=== PATIENT | female | born 1995 | race Caucasian/White ===

== ENCOUNTER 2019-05-12 11:50 | Inpatient (IN) | payer MEDICAID, SELFPAY ==
[2015-04-08 09:32] VITALS: BMI 31.0
[2019-05-12] MEDS: Lactated Ringers 1,000 ML 50 ML IV (12:45)
--- NOTE | 2019-05-12 12:48 | PCM.HP.OB ---
History Date of Admission: 05/12/19 Final MARYANA: 05/17/19 Final MARYANA Source: US <20 weeks Gestational age: 39 Weeks and 2 Days History of this : This is a 24 year-old, @ 39 1/7 weeks gestation presents for elective induction. Denies FNOSECA or visual changes. No VB/LOF. No painful ctxs. Allergies No Known Allergies Allergy (Verified 04/08/15 09:44) Home Medications: Home Medications Vits [Prenatabs FA ] 1 tablet PO DAILY 04/08/15 Ranitidine [Zantac] 150 mg PO BID 04/08/15 Ibuprofen [Motrin] 600 mg PO Q6H PRN PRN #60 tablet 04/10/15 Smoking Status: Former smoker Alcohol: None Number of Fetus(es): 1 NST - FHR Rate Baby A Baseline: normal Variability:: Moderate Accelerations:: 15 x 15 Decelerations:: None FHR Category:: Category I Uterine Activity:: irreg ctxs History Past Pregnancies: Past Pregnancies Delivery Date Name GA/ Weeks Outcome Route Wt Infant Sex Labor Length Anesthesia Delivery Location Provider FOB Expected Delivery Method: Spontaneous Vaginal Number of Visits: 1 Review of Systems Constitutional: Denies: Chills, Fever Eyes: Denies: Blurred vision Cardiovascular: Denies: Chest Pain Respiratory: Denies: Cough, Shortness of Breath Genitourinary: Denies: Dysuria Skin: Denies: Rash Neurological: Denies: Blurred vision Hematologic/ Lymphatic: Denies: Anemia Physical Exam General: Alert, Cooperative Cardiovascular: Regular rate Lungs: Normal air movement Abdomen: Soft, Non Tender, Non-Distended, Gravid, Appropriate for Gestational Age Extremities:: Other - edema- Trace Neurological: Cranial nerves II-XII grossly intact [employer]EL INST[employer]ER: Normal external genitalia Estimated gestational size: Appropriate for gestational size Assessment/Plan This is a 24 year-old, at 39-1/7 weeks gestation for elective induction of labor. Estimated weight is less than 4000 g clinically, pelvis clinically adequate to expect vaginal delivery. Risk benefits and alternatives to induction been discussed with the patient, her questions were answered to her satisfaction, and consent was signed. She desires to proceed. We will proceed with Pitocin and artificial rupture membranes induction. May have epidural, nitrous oxide or IV pain medications as needed for pain control.
[2019-05-12 12:49] VITALS: BMI 29.5
[2019-05-12] MEDS: Oxytocin 30 units/NS 500 ml 30 UNITS/500 ML IV.SOLN IV (12:58)
[2019-05-12 13:05] LABS: Absolute Lymphocyte Count 1.65 X10^3/uL (0.83-4.51); Basophil# 0.03 X10^3/uL; Basophil% 0.3 % (0-1); Eosinophil# 0.04 X10^3/uL; Eosinophils% 0.4 % (0-5); Hematocrit 32.5 % (37-47); Hemoglobin 10.4 g/dL (12.0-15.0); Lymphocyte # 1.65 X10^3/ul (4.0); Lymphocyte % 17.5 % (19-41); Mean Corpuscular Hgb 27.2 pg (27.0-32.0); Mean Corpuscular Volume 84.9 fL (81-99); Mean Platelet Vol. 11.2 fl (6.2-12.0); Monocyte% 6.3 % (0-10); NRBC Flagged by Analyzer 0 % (0-5); Neutrophil # 7.02 X10^3/uL (2.7-7.7); Neutrophil % 74.3 % (47-70); Platelet Count 153 K/mm3 (150-450); RBC Distribution Width CV 13.4 % (11.6-14.6); Red Blood Count 3.83 M/mm3 (4.2-5.4); White Blood Count 9.5 K/mm3 (4.4-11.0)
[2019-05-12] MEDS: Lactated Ringers 500 ML 999 ML IV (15:00)
[2019-05-12] MEDS: fentaNYL-bupivacaine (epidural) 100 ML BAG EPIDURAL (16:25)
[2019-05-12] MEDS: Oxytocin 30 units/NS 500 ml 30 UNITS/500 ML IV.SOLN 334 UNITS IV (18:26)
--- NOTE | 2019-05-12 18:38 | PCM.OPRPT ---
Vaginal Delivery Maternal Presentation: Elective Induction Method of Induction: Pitocin, Amniotomy Amniotic Membrane Rupture Type: Artificial Amniotic Fluid Description: Clear Final MARYANA: 05/18/19 Gestational age: 39 Weeks and 1 Days Date of Procedure: 05/12/19 Pre-Operative Diagnosis: labor Post-Operative Diagnosis: same Surgery/ Procedure Performed: Spontaneous Vaginal Delivery Type of Anesthesia: Epidural Description of Procedure: A vigorous male infant was delivered BEE over a second-degree perineal laceration. The remainder the was delivered with maternal pushing and gentle traction only in less than 15 seconds. The Pitocin infusion was initiated for active management of the third stage. The cord was clamped and cut after 1 minute. The was attended to by the waiting nursing staff. The placenta was delivered spontaneously and intact. The cervix and vagina were intact. The second-degree perineal laceration was repaired with 2-0 Vicryl suture in a running standard fashion. Sponge and needle counts were correct. A vaginal sweep was completed by me. Presentation: BEE Placental Delivery Description: Spontaneous Placenta Disposition: [facility] Cord Vessel Description: 3 Vessels Cord Entanglement: None Drain: - - none Estimated Blood Loss: 300 Infant A gender: Male (1 minute): 9 (5 minute): 9 Episiotomy Description: None Laceration: 2nd degree Medications given after delivery: IV Pitocin Complications: None
[2019-05-12] MEDS: 0.9% Saline Lock 10 ML Syringe IV (21:10)
[2019-05-13 00:27] VITALS: BP 112/49; PULSE 89; RESP 18; TEMP 37.1
[2019-05-13 04:18] VITALS: BP 99/54; PULSE 65; RESP 17
[2019-05-13] MEDS: Acetaminophen 500 MG Tablet 1000 MG PO (08:37)
[2019-05-13] MEDS: Senna/Docusate Sodium 1 Tablet PO (08:37)
[2019-05-13 08:38] VITALS: BP 121/75; PULSE 85; RESP 16; TEMP 36.8
--- NOTE | 2019-05-13 09:42 | PN.OBGYN_ITS ---
Subjective: Pain well controlled. Average lochia. Some cramping and soreness. Otherwise no complaints. - Physical Exam Vitals/I&O's: Vital Signs Temp Pulse Resp BP 98.3 F 85 16 121/75 H 05/13/19 08:38 05/13/19 08:38 05/13/19 08:38 05/13/19 08:38 Oxygen Delivery Method Room Air Weight: 73.4 kg Body Mass Index (BMI) 29.5 Intake and Output for Last 24 Hours 05/11/19 05/12/19 05/13/19 23:59 23:59 23:59 Intake Total 1769.19 / 1769.19 Output Total 200 / 200 500 / 500 Balance 1569.19 / 1569.19 -500 / -500 General: Alert, Cooperative, No apparent distress Laboratory Results 05/12/19 12:45: WBC 9.5, RBC 3.83 L, Hgb 10.4 L, Hct 32.5 L, MCV 84.9, MCH 27.2, MCHC 32.0, RDW Std Deviation 41.0, RDW Coeff of Melody 13.4, Plt Count 153, MPV 11.2, Immature Gran % (Auto) 1.200 H, Neut % (Auto) 74.3 H, Lymph % (Auto) 17.5 L, [place] % (Auto) 6.3, Eos % (Auto) 0.4, Baso % (Auto) 0.3, Absolute Neuts (auto) 7.0, Absolute Lymphs (auto) 1.65, Nucleated RBC % 0 05/12/19 12:45: Blood Type O POSITIVE, Antibody Screen NEGATIVE Current Medications Acetaminophen (Tylenol) 1,000 mg PO Q8H PRN PRN PRN Reason: Pain Score 1-3/10 Last Admin: 05/13/19 08:37 Dose: 1,000 mg Documented by: Bisacodyl (Dulcolax) 10 mg RECTAL UD PRN PRN Reason: If no BM Dibucaine (Dibucaine) 1 applic TOPICAL TID PRN PRN; Protocol PRN Reason: Discomfort Hydrocortisone (Hytone) 1 applic TOPICAL TID PRN PRN; Protocol PRN Reason: Discomfort Ketorolac Tromethamine (Toradol) 10 mg PO Q6H PRN PRN PRN Reason: Pain Score 1-3/10 Stop: 05/17/19 18:35 Methylergonovine Maleate (Methergine) 0.2 mg IM X1 PRN PRN Reason: Excess bleeding/uterine atony Naproxen (Naprosyn) 500 mg PO Q8H PRN PRN PRN Reason: Pain Score 1-3/10 Ondansetron HCl (Zofran) 4 mg IV Q4H PRN PRN PRN Reason: Nausea Senna/Docusate Sodium (Senokot-S, Michelle-Colace) 1 - 2 tablet PO DAILY PRN PRN PRN Reason: Constipation Last Admin: 05/13/19 08:37 Dose: 2 tablet Documented by: Simethicone (Mylicon) 80 mg PO PCHS PRN PRN Reason: Indigestion/Stomach pain Sodium Chloride () 5 - 15 ml IV UD PRN PRN Reason: SALINE FLUSH Last Admin: 05/12/19 21:10 Dose: 10 ml Documented by: Medical Necessity - Tobacco Use Smoking Status: Former smoker Assessment/Plan day #1 status post vaginal delivery. Patient is doing well. Routine care. Desires discharge home. Infant is bottlefeeding and doing well.
--- NOTE | 2019-05-13 09:46 | DCINST_ITS ---
Discharge Diet: No Restrictions Discharge Activity: Return to Normal Activity, May not drive while taking narcotic pain medications., May Shower May resume sexual activity in: 4-6 weeks Additional Activity Instructions:: Nothing in the vagina for 4-6 weeks. You may return to work/school in 6 weeks. Call your doctor if your incision/area has: Continuous Slow Oozing, Sudden Increased Bleeding, Increased Pain/ Swelling, Increased Redness, Foul Smelling Discharge Additional Instructions: If you experience any of the following, contact your healthcare provider. * Bleeding that soaks a pad every hour for 2 hours * Fever 100.4 or higher * Unrelieved incision or abdominal pain * Swelling, redness, discharge or bleeding from your incision or episiotomy site * Your incision begins to separate * Problems urinating (including inability to urinate or burning while urinating). * Visual changes * Severe headache * Flu-like symptoms * Pain or redness in one of both of your breasts * Pain, warmth, tenderness or swelling in your legs, especially the calf area * Frequent nausea and vomiting * Symptoms of depression or anxiety If you experience any of the following, call 911 or go to the nearest Emergency Room. * Chest pain * Problems breathing * Seizure activity * Partial or complete paralysis of a body part, slurred speech, weakness or drooping of the face, or a sudden inability to walk or hold your balance Allergies/Adverse Reactions: Allergies No Known Allergies Allergy (Verified 04/08/15 09:44) Medications to take at Discharge Vits [Prenatabs FA ] 1 tablet PO DAILY 04/08/15 Acetaminophen [Tylenol Extra Strength] 1,000 mg PO Q6H PRN PRN #30 tab 05/13/19 Ibuprofen [Motrin] 600 mg PO Q6H PRN #60 tab 05/13/19 The following prescriptions were given: Ibuprofen [Motrin] 600 mg PO Q6H PRN #60 tab PRN Reason: Pain Transmission Status: Pending to [facility] Acetaminophen [Tylenol Extra Strength] 1,000 mg PO Q6H PRN PRN #30 tab PRN Reason: Pain Or Fever Transmission Status: Pending to [facility] Please Follow Up With: Priscilal Cameron MD - [phone] When: Call to make an appointment with your doctor in 6 weeks and 1-2 weeks if desired Primary Care Physician: Care Physician,No Primary [Primary Care Provider] - Test Results: Test results from this visit will be discussed in further detail at your follow- up appointment, if applicable.
[2019-05-13 12:00] VITALS: BP 110/64; PULSE 82; RESP 16; TEMP 36.6
[2019-05-13 16:30] VITALS: BP 109/63; PULSE 82; RESP 16; TEMP 36.7
[2019-05-13 20:16] VITALS: BP 133/69; PULSE 89; RESP 18; TEMP 36.9
== END 2019-05-13 20:20 | disposition home or self-care (01) | DRG 560 ==
PROVIDERS: Admitting Provider Obstetrics & Gynecology; Referring Provider Obstetrics & Gynecology; Visit Provider Obstetrics & Gynecology
DX: O75.89 Other specified complications of labor and delivery (principal); O70.1 Second degree perineal laceration during delivery; Z37.0 Single live birth; Z3A.39 39 weeks gestation of pregnancy; Z87.891 Personal history of nicotine dependence
CPT/HCPCS: 59050; 85025; 86850; 86900; 86901; 99218; J7120; A4216; G0378

== ENCOUNTER 2020-11-05 13:40 | Outpatient (CLI) | payer MEDICAID, SELFPAY ==
[2020-11-05 13:53] VITALS: PULSE 77; O2SAT 98
[2020-11-05 13:55] VITALS: BP 122/58; PULSE 71
[2020-11-05 13:57] VITALS: TEMP 36.9; O2SAT 99
[2020-11-05 15:37] VITALS: BMI 28.0
--- NOTE | 2020-11-05 15:37 | CT_ITS ---
STUDY: CT ABDOMEN AND PELVIS WITH CONTRAST REASON FOR EXAM: Female, 25 years old. Assess for APPENDICITIS -- 23 WEEKS GESTATION RADIATION DOSAGE (If Supplied By Facility): CTDIvol = ( 11.99 ) mGy, DLP = ( 728.46 ) mGycm TECHNIQUE: Transaxial images were obtained from the dome of the diaphragm to the symphysis pubis without oral contrast. Oral and amp; IV Gastrografin and amp; 100mL Isovue-300 was administered. Sagittal and coronal images were reconstructed. Individualized dose optimization techniques were used for this CT. COMPARISON: None. FINDINGS: The visualized lung bases are unremarkable. The visualized portions of the heart are within normal limits. Normal liver. Normal gallbladder and extrahepatic biliary system. Normal spleen. Normal pancreas. Normal bilateral adrenal glands. There is bilateral hydroureteronephrosis, more pronounced on the right. Normal visualized stomach. Normal small intestine. Normal colon. The appendix is visualized and appears normal. Normal abdominal aorta. Normal inferior vena cava. Normal retroperitoneum. Normal urinary bladder. There is a gravid uterus; the fetus is in a vertex presentation. Normal abdominal wall. There are bilateral L5 pars defects. CT/Abdomen/Pelvis WITH Contrast IMPRESSION: Bilateral hydroureteronephrosis, more pronounced on the right. Nonvisualization of the appendix. uterus. Bilateral L5 pars defects. Electronically Signed: Natalie Call MD at 18:19 EDT Tel , Service support ,
[2020-11-05 17:32] VITALS: BP 112/65; PULSE 63
--- NOTE | 2020-11-05 18:29 | OB.TRI.NOTE ---
HPI - General HPI Narrative MARY KOENIG, is a 25 at 23.3 weeks gestation who presents with right lower quadrant pain. Patient arrived to unit via squad. She was at work and began having a sharp pain that started off as intermittent and is now constant. Rates pain 01/09. Maternal Data Information MARYANA Calculator Estimated Delivery Date Method Current WG Current Estimate 03/01/21 Manual 23w 3d PFSH PFSH Home Medications Prenatabs FA 1 tab PO DAILY 04/08/15 [History Last Taken 11/05/20] omeprazole [Prilosec] 20 mg PO DAILY 11/05/20 [History Last Taken Unknown] Allergy/AdvReac Type Severity Reaction Status Date / Time No Known Allergies Allergy Verified 11/05/20 16:24 Social History Smoking Status: Former smoker History Elective abortions Hx Para 1 Spontaneous abortions Hx # Term Pregnancies Ectopic pregnancies Hx # Pregnancies Multiple births # of living children ROS Eyes Eyes: Denies blurry vision Cardiovascular Cardiovascular: Reports none; Denies chest pain at rest, chest pain with activity or dizziness Respiratory/Chest Respiratory/Chest: Denies cough or dyspnea Gastrointestinal Gastrointestinal: Reports abdominal pain and other Details: LRQ pain Genitourinary Genitourinary: Denies dysuria Musculoskeletal Musculoskeletal: Reports none Integumentary Integumentary: Reports none; Denies rash Neurologic Neurologic: Denies dizziness, headache(s) or other visual disturbances Psychiatric Psychiatric: Reports none Physical Exam Const alert and no apparent distress General Appearance: cooperative Orientation / Consciousness: awake Exam Limitations: no limitations HEENT normocephalic Eyes General Eye: normal appearance of both eyes Neck full ROM Chest inspection of chest normal Resp normal respiratory effort and normal air movement Effort and Inspection: symmetric chest movement Auscultation: clear to auscultation bilaterally Cardio regular rate GI GI Narrative: Lower bilateral quadrants tender to palpation Inspection: gravid Back/Spine normal ROM Extremity full ROM, normal capillary refill and no calf tenderness Skin no rashes or lesions noted Neuro oriented x3 and CN's II-XII intact bilaterally Psych mental status grossly normal NST FHR Rate Baby A Baseline: 140 Uterine Activity:: None noted Assessment & Plan (1) 23 weeks gestation of : (2) Right lower quadrant abdominal pain: PLAN: FHT via doppler TOCO continuous CT scan of lower abdomen to r/o appendicitis Dr. Cameron notified and is collaborating physician
[2020-11-05 18:31] LABS: Bacteria 0 SEEN /hpf (None Seen); Mucous, Urine 0 SEEN /hpf (<or=2+); Red Blood Cells-Urine 0 SEEN /hpf (0-5)
[2020-11-05 18:42] LABS: Color, Urine Straw (Yellow); Glucose, Dipstick Normal (Normal); Ketone-Dipstick Negative (Negative); Leukocyte Esterase-Dipstick 100 /ul (Negative); Nitrite-Dipstick Negative (Negative); Occult Blood-Urine 25 /ul (Negative); Protein-Dipstick Negative (Negative); Urine Bilirubin Dipstick Negative (Negative); Urine Clarity Clear (Clear); Urine Urobilinogen Normal (Normal)
[2020-11-05 18:56] LABS: Squamous Epithelial Cells - UA 0-5 SEEN /hpf (5-10); White Blood Cells 0-5 SEEN /hpf (0-5)
--- NOTE | 2020-11-05 19:50 | PCM.PN.BLA ---
Physical Exam Narrative Awake, alert, no acute distress. Sitting up comfortably in bed. Abdomen is soft, gravid, nontender, nondistended. Fundus is nontender. Size is appropriate for gestational age. Assessment & Plan Assessment/Plan (1) Right lower quadrant abdominal pain: PLAN: CT is negative for evidence of appendicitis. Patient tolerated broth. Pain has resolved completely at this point. Likely had some kind of spasm. Patient to return if any other concerns, vaginal bleeding, leaking of fluid, fever or nausea or vomiting. Patient is comfortable with this plan. Follow-up in the office or return as needed. (2) 23 weeks gestation of :
[2020-11-06 01:19] VITALS: BP 140/93; PULSE 66
== END 2020-11-05 19:55 | disposition home or self-care (01) ==
LOC: WPOUT 13:50 → WP 13:52
PROVIDERS: Referring Provider Advanced Practice Midwife; Visit Provider Advanced Practice Midwife
DX: O26.892 Other specified pregnancy related conditions, second trimester (principal); R10.31 Right lower quadrant pain; Z3A.23 23 weeks gestation of pregnancy; Z87.891 Personal history of nicotine dependence; Z79.899 Other long term (current) drug therapy
CPT/HCPCS: 59025; 59050; 74177; 81001; 87086; 87088; 99218; Q9967; G0378

== ENCOUNTER 2021-02-09 18:40 | Inpatient (IN) | payer MEDICAID, SELFPAY ==
[2021-02-09] VITALS (45 sets, daily range): BP systolic 109–180; BP diastolic 55–113; PULSE 64–108; TEMP 36.4–36.7; O2SAT 92–100; BMI 33.4
--- NOTE | 2021-02-09 09:28 | OB.TRI.NOTE ---
HPI - General HPI Narrative MARY KOENIG, is a 25 F @ 37+1 weeks who presents c/o contractions. denies VB, LOF. Maternal Data Information MAYRANA Calculator Estimated Delivery Date Method Current WG Current Estimate 03/01/21 Manual 37w 1d PFSH PFSH Home Medications Prenatabs FA 1 tab PO DAILY 04/08/15 [History Last Taken 02/08/21 22:00] omeprazole [Prilosec] 20 mg PO DAILY 11/05/20 [History Last Taken 02/08/21 10:00] Allergy/AdvReac Type Severity Reaction Status Date / Time No Known Allergies Allergy Verified 11/05/20 16:24 Social History Smoking Status: Former smoker History Elective abortions Hx Para 1 Spontaneous abortions Hx # Term Pregnancies Ectopic pregnancies Hx # Pregnancies Multiple births # of living children Physical Exam Narrative Well appearing, alert in no apparent distress. VE performed by RN. 1/thick NST FHR Rate Baby A Baseline: 130 Variability:: Moderate Accelerations:: 15 x 15 Decelerations:: None NST Reactive:: Yes FHR Category:: Category I Uterine Activity:: irregular Assessment & Plan (1) Cramping affecting , antepartum: (2) 37 weeks gestation of : PLAN: @ 37.1 weeks- irregular contractions-false labor 1) dc home
[2021-02-09] MEDS: Lactated Ringers 1,000 ML 200 ML IV ×2 (17:20→23:10)
[2021-02-09 17:49] LABS: Hematocrit 29.8 % (37-47); Hemoglobin 8.9 g/dL (12.0-15.0); Mean Corp Hgb Conc 29.9 g/dL (32-36); Mean Corpuscular Hgb 23.1 pg (27.0-32.0); Mean Corpuscular Volume 77.2 fL (81-99); Mean Platelet Vol. 12.8 fl (6.2-12.0); Platelet Count 140 K/mm3 (150-450); RBC Distribution Width CV 19.3 % (11.6-14.6); RBC Distribution Width SD 42.5 fl (35.1-43.9); Red Blood Count 3.86 M/mm3 (4.2-5.4); White Blood Count 8.4 K/mm3 (4.4-11.0)
[2021-02-09 18:28] LABS: Protein, Urine (Random) 228.5 mg/dL (<11.9); Protein:Creat Ratio 757 mg/g CRE (0-200)
[2021-02-09 18:30] LABS: AST(SGOT) 23 U/L (15-37); Alanine Aminotransfer ALT/SGPT 15 U/L (13-56); Creatinine, Serum 0.66 mg/dL (0.55-1.02); EST Glomerular Filtration Rate 114 mL/min (>60); Est Glom Filt Rate - Afr Amer 138 mL/min (>60); Estimated Creatinine Clearance 96.62 ml/min; Uric Acid 5.6 mg/dL (2.6-6.0)
[2021-02-09] MEDS: Lactated Ringers 1,000 ML 50 ML IV (18:50)
[2021-02-09 19:08] LABS: Group B Strep DNA By PCR Negative (Negative); Internal Control PASS; Probe Check PASS; Specimen Processing Control PASS
[2021-02-09] MEDS: Oxytocin 30 units/NS 500 ml 30 UNITS/500 ML IV.SOLN IV (19:45)
[2021-02-09] MEDS: Lactated Ringers 500 ML 999 ML IV (20:57)
[2021-02-09] MEDS: fentaNYL-bupivacaine (epidural) 100 ML BAG EPIDURAL (21:57)
[2021-02-09] MEDS: Mag Hydrox/Al Hydrox/Simeth 30 ML UDC PO (22:12)
[2021-02-10] VITALS (21 sets, daily range): BP systolic 117–158; BP diastolic 56–106; PULSE 53–93; RESP 16; TEMP 36.1–37.1; O2SAT 95–98
[2021-02-10] MEDS: Ondansetron 4 MG/2 ML Vial IV (01:49)
[2021-02-10] MEDS: 0.9% Saline Lock 10 ML Syringe IV (01:49)
[2021-02-10] MEDS: fentaNYL-bupivacaine (epidural) 100 ML BAG EPIDURAL (02:33)
[2021-02-10] MEDS: Lactated Ringers 1,000 ML 200 ML IV (03:52)
[2021-02-10] MEDS: Oxytocin 30 units/NS 500 ml 30 UNITS/500 ML IV.SOLN 334 UNITS IV (05:33)
--- NOTE | 2021-02-10 05:39 | HP.PCM.OB_ITS ---
HPI - General General Date of Admission: 02/09/21 HPI Narrative MARY KOENIG, is a 25 F @ 37.1 weeks who presents from the office for r/o pre eclampsia- pt represented with abdominal pain and mildly elevated BP in office. Pt denies FONSCEA, visual changes, epigastric pain. Pt reports good FM, no VB. pt was seen earlier to r/o labor and dc home without incident. Maternal Data Information MARYANA Calculator Estimated Delivery Date Method Current WG Current Estimate 03/01/21 Manual 37w 2d PFSH PFSH Medical History (Updated 02/10/21 @ 05:[address] Soraya Good MD) Anemia Anxiety depression Home Medications Prenatabs FA 1 tab PO DAILY 04/08/15 [History Last Taken 02/08/21 22:00] omeprazole [Prilosec] 20 mg PO DAILY 11/05/20 [History Last Taken 02/08/21 10:00] Allergy/AdvReac Type Severity Reaction Status Date / Time No Known Allergies Allergy Verified 11/05/20 16:24 Surgical History (Updated 02/09/21 @ 18:46 by Fatou Piedra) [place] teeth extracted Social History Smoking Status: Former smoker History Elective abortions Hx Para 2 Spontaneous abortions Hx # Term Pregnancies Ectopic pregnancies Hx # Pregnancies Multiple births # of living children Vital Signs Vital Signs Vital Signs: 02/09/21 08:19 02/09/21 08:20 02/09/21 17:10 Temperature 97.9 F Temperature Source Temporal Pulse Rate 71 68 83 Blood Pressure 135/70 H 135/70 H 136/79 H BP Systolic 135 135 136 BP Diastolic 70 70 79 Pulse Ox 98 02/09/21 17:15 02/09/21 17:29 02/09/21 17:45 Temperature 98.1 F Temperature Source Temporal Pulse Rate 83 95 Blood Pressure 134/77 H 139/80 H BP Systolic 134 139 BP Diastolic 77 80 Pulse Ox 02/09/21 18:00 02/09/21 18:15 02/09/21 18:30 Temperature Temperature Source Pulse Rate 83 78 73 Blood Pressure 135/81 H 144/87 H 145/88 H BP Systolic 135 144 145 BP Diastolic 81 87 88 Pulse Ox 02/09/21 19:23 02/09/21 19:24 02/09/21 19:39 Temperature 97.7 F L Temperature Source Temporal Pulse Rate 93 96 Blood Pressure 180/86 H 145/71 H BP Systolic 180 145 BP Diastolic 86 71 Pulse Ox 97 02/09/21 20:44 02/09/21 21:00 02/09/21 21:01 Temperature 97.7 F L Temperature Source Temporal Pulse Rate 93 76 93 Blood Pressure 161/85 H 143/82 H BP Systolic 161 143 BP Diastolic 85 82 Pulse Ox 92 99 02/09/21 21:37 02/09/21 21:38 02/09/21 21:42 Temperature 97.6 F L Temperature Source Temporal Pulse Rate 96 97 98 Blood Pressure 132/84 H 143/96 H BP Systolic 132 143 BP Diastolic 84 96 Pulse Ox 99 99 02/09/21 21:47 02/09/21 21:52 02/09/21 21:57 Temperature Temperature Source Pulse Rate 84 85 Blood Pressure 144/93 H 138/84 H BP Systolic 144 138 BP Diastolic 93 84 Pulse Ox 99 93 98 02/09/21 21:58 02/09/21 22:02 02/09/21 22:03 Temperature Temperature Source Pulse Rate 82 96 Blood Pressure 140/92 H 135/113 H BP Systolic 140 135 BP Diastolic 92 113 Pulse Ox 99 02/09/21 22:05 02/09/21 22:07 02/09/21 22:12 Temperature Temperature Source Pulse Rate 75 91 108 H Blood Pressure 131/73 H 129/73 H 130/73 H BP Systolic 131 129 130 BP Diastolic 73 73 73 Pulse Ox 100 100 02/09/21 22:17 02/09/21 22:23 02/09/21 22:27 Temperature Temperature Source Pulse Rate 70 73 Blood Pressure 139/79 H 116/55 L BP Systolic 139 116 BP Diastolic 79 55 Pulse Ox 100 98 02/09/21 22:28 02/09/21 22:32 02/09/21 22:37 Temperature Temperature Source Pulse Rate 67 70 68 Blood Pressure 118/56 L 118/59 L 117/59 L BP Systolic 118 118 117 BP Diastolic 56 59 59 Pulse Ox 98 98 02/09/21 22:42 02/09/21 22:47 02/09/21 22:48 Temperature Temperature Source Pulse Rate 70 70 67 Blood Pressure 115/59 L 113/58 L BP Systolic 115 113 BP Diastolic 59 58 Pulse Ox 98 97 02/09/21 22:52 02/09/21 22:57 02/09/21 23:02 Temperature Temperature Source Pulse Rate 67 68 67 Blood Pressure 109/58 L 118/58 L 114/58 L BP Systolic 109 118 114 BP Diastolic 58 58 58 Pulse Ox 97 96 98 02/09/21 23:07 02/09/21 23:12 02/09/21 23:16 Temperature Temperature Source Pulse Rate 64 70 65 Blood Pressure 115/57 L 113/56 L 112/57 L BP Systolic 115 113 112 BP Diastolic 57 56 57 Pulse Ox 98 95 02/09/21 23:17 02/09/21 23:22 02/09/21 23:28 Temperature Temperature Source Pulse Rate 67 64 76 Blood Pressure 111/56 L 137/81 H BP Systolic 111 137 BP Diastolic 56 81 Pulse Ox 96 96 02/10/21 00:36 02/10/21 01:19 02/10/21 01:54 Temperature 97.8 F 97.5 F L 98.1 F Temperature Source Temporal Temporal Temporal Pulse Rate 65 76 80 Blood Pressure 119/58 L 131/63 H 136/75 H BP Systolic 119 131 136 BP Diastolic 58 63 75 Pulse Ox 97 02/10/21 03:03 02/10/21 03:54 02/10/21 05:00 Temperature 97.5 F L 97.3 F L 97.5 F L Temperature Source Temporal Temporal Temporal Pulse Rate 81 66 81 Blood Pressure 132/82 H 120/56 L 143/71 H BP Systolic 132 120 143 BP Diastolic 82 56 71 Pulse Ox 96 02/10/21 05:01 Temperature Temperature Source Pulse Rate 70 Blood Pressure BP Systolic BP Diastolic Pulse Ox 95 Weight Weight: 80.2 kg Body Mass Index (BMI) 33.4 Labs Labs Labs: Blood Type O POSITIVE Antibody Screen NEGATIVE Hct 29.8 % (37-47) L Hgb 8.9 g/dL (12.0-15.0) L Group B Strep DNA Negative (Negative) Rhogam given: No Assessment & Plan (1) Preeclampsia: QUALIFIERS: Trimester: third trimester Qualified Code(s): O14.93 - Unspecified pre-eclampsia, third trimester (2) 37 weeks gestation of : PLAN: Admit to L&D [facility] FHR/TOCO Epidural if requested for pain Monitor VS Anticipate PRE E labs reviewed- Urine prot creat ratio elevated 757mg AST/ALT wnl, plts low 140, creatinine wnl Anemia in pitocin
--- NOTE | 2021-02-10 05:42 | EX.PCM.OBRPT ---
Assessment & Plan (1) 37 weeks gestation of : (2) Preeclampsia: QUALIFIERS: Trimester: third trimester Qualified Code(s): O14.93 - Unspecified pre-eclampsia, third trimester (3) Vaginal delivery: Maternal Data Information MARYANA Calculator Estimated Delivery Date Method Current WG Current Estimate 03/01/21 Manual 37w 2d Vaginal Delivery Maternal Presentation Maternal Presentation: Medically Indicated Induction Maternal Presentation: preeclampsia Type of Induction: Pitocin Medical Reason for Induction: Preeclampsia, eclampsia Operative Information Date of Procedure: 02/10/21 Pre-Operative Diagnosis: Preeclampsia, early term gestation Post-Operative Diagnosis: same, live male infant Surgery / Procedure Performed: Spontaneous Vaginal Delivery Type of Anesthesia: Epidural Drain: Paige to straight drain Estimated Blood Loss: 150 Time of Delivery: 05:31 Findings Description of Procedure: I was called to notify the patient was complete. Upon my arrival membranes were intact. Artificial rupture membranes was performed clear fluid. Good maternal pushing efforts delivered the head followed by gentle downward traction and good maternal pushing efforts to deliver the anterior shoulder followed by the rest 's body. was placed on the mother's chest it was vigorous at time of . Delayed cord clamping was performed. Placenta was then delivered intact without complication. First-degree vaginal laceration was repaired with a 3-0 Rapide. Presentation: Vertex Amniotic Membrane Rupture Type: Artificial Amniotic Fluid Description: Clear Placental Delivery Description: Expressed Placenta Disposition: [facility] Specimen(s) Removed: Placenta Cord Vessel Description: 3 Vessels Cord Entanglement: None Infant A Gender: Male (1 minute): 8 (5 minute): 9 Delayed Cord Clamping: Yes Post Vaginal Delivery Medications Given After Delivery: IV Pitocin Episiotomy Description: None Laceration: Vaginal Extension/lac and 1st degree Complication Complications: None
[2021-02-10] MEDS: Acetaminophen 500 MG Tablet 1000 MG PO ×3 (06:10→22:35)
[2021-02-10] MEDS: Methylergonovine 0.2 MG/ML Ampul IM (07:53)
[2021-02-10] MEDS: Pantoprazole Sodium 20 MG Tablet PO (09:50)
[2021-02-10] MEDS: Ferrous Sulfate 325 MG Tablet PO ×2 (12:27→17:18)
--- NOTE | 2021-02-10 16:59 | NURSING ---
1640 pt c/o heartburn and wants some medication- BP taken d/t dx of Pre E pt denies any vision problems, pt states that she had a mild headache prior to Tylenol but now she has no headache; Dr campbell called at 1655 and notified of pts c/o heartburn, mild headache earlier relieved with tylenol, and BP of 148/82; Order received for froy
[2021-02-10] MEDS: Mag Hydrox/Al Hydrox/Simeth 30 ML UDC PO (17:18)
[2021-02-11] VITALS: BP 136/80; PULSE 77; RESP 18; TEMP 36.4; O2SAT 96
[2021-02-11] MEDS: Ibuprofen 600 MG Tablet PO (03:23)
[2021-02-11 03:38] VITALS: BP 134/68; PULSE 68; RESP 16; TEMP 36.2; O2SAT 97
[2021-02-11 06:25] LABS: Hematocrit 25.1 % (37-47); Hemoglobin 7.5 g/dL (12.0-15.0); Mean Corp Hgb Conc 29.9 g/dL (32-36); Mean Corpuscular Hgb 23.5 pg (27.0-32.0); Mean Corpuscular Volume 78.7 fL (81-99); Mean Platelet Vol. 11.4 fl (6.2-12.0); POSITIVE MORPHOLOGY YES; Platelet Count 113 K/mm3 (150-450); RBC Distribution Width CV 20.1 % (11.6-14.6); RBC Distribution Width SD 43.1 fl (35.1-43.9); Red Blood Count 3.19 M/mm3 (4.2-5.4); White Blood Count 8.2 K/mm3 (4.4-11.0)
[2021-02-11 06:30] LABS: Scan Indicated on CBC? Y/N YES- FLAGS NOTED
[2021-02-11 06:49] LABS: Differential Comment SCANNED
[2021-02-11 08:11] VITALS: BP 140/76; PULSE 78; RESP 17; TEMP 36.4; O2SAT 98
--- NOTE | 2021-02-11 08:21 | PN.OBGYN_ITS ---
Subjective Subjective Doing well per patient and nursing staff. Ambulating and taking PO without difficulty. Voiding and passing flatus. Pain controlled. Bottle feeding.Denies headache, visual changes, chest pain, shortness of breath, leg pain or increased bleeding. Lochia normal. Denies any dizzy or lightheadedness. Objective Data Objective Data Vital Signs: Vital Signs Temp Pulse Resp BP Pulse Ox 97.5 F L 78 17 140/76 H 98 02/11/21 08:11 02/11/21 08:11 02/11/21 08:11 02/11/21 08:11 02/11/21 08:11 Oxygen Delivery Method Room Air Weight: 176 lb 12.972 oz Body Mass Index (BMI) 33.4 Intake & Output: Intake and Output for Last 24 Hours 02/09/21 02/10/21 02/11/21 23:59 23:59 23:59 Intake Total 1279.68 / 1279.68 1907.17 / 1907.17 Output Total 200 / 200 450 / 450 Balance 1079.68 / 1079.68 1457.17 / 1457.17 Lab / Micro Data Result Diagrams: 02/11/21 06:18 02/09/21 17:20 Labs: Laboratory Results - last 24 hr 02/11/21 06:18: WBC 8.2, RBC 3.19 L, Hgb 7.5 L, Hct 25.1 L, MCV 78.7 L, MCH 23.5 L, MCHC 29.9 L, RDW Std Deviation 43.1, RDW Coeff of Melody 20.1 H, Plt Count 113 L , MPV 11.4, Differential Comment SCANNED Micro: Microbiology 02/09/21 19:10 Nasal Secretion SARS-CoV-2 Antigen (Rapid) - Final ROS Constitutional Constitutional: Reports systems reviewed and no addt'l complaints, except as documented; Denies headache(s) Eyes Eyes: Denies acute decrease in peripheral vision, blurry vision or change in vision ENT HEENT: Reports systems reviewed and no addt'l complaints, except as documented Cardiovascular Cardiovascular: Denies chest pain or dizziness Respiratory/Chest Respiratory/Chest: Denies cough, dyspnea, dyspnea on exertion, shortness of breath at rest or shortness of breath with exertion Gastrointestinal Gastrointestinal: Denies abdominal pain, diarrhea, nausea or vomiting Genitourinary Genitourinary: Denies abdominal discomfort Musculoskeletal Musculoskeletal: Denies limited range of motion Integumentary Integumentary: Reports systems reviewed and no addt'l complaints, except as documented Neurologic Neurologic: Reports systems reviewed and no addt'l complaints, except as documented Psychiatric Psychiatric: Reports systems reviewed and no addt'l complaints, except as documented Endocrine Endocrinology: Reports systems reviewed and no addt'l complaints, except as documented Hematologic/Lymphatic Hematologic/Lymphatic: Reports systems reviewed and no addt'l complaints, except as documented Allergic/Immunologic Allergic/Immunologic: Reports systems reviewed and no addt'l complaints, except as documented Physical Exam Const alert and oriented x3 General Appearance: cooperative Orientation / Consciousness: awake, oriented to person, oriented to place and oriented to time Exam Limitations: no limitations HEENT normocephalic Head and Scalp: normal to inspection, normocephalic and atraumatic Face and Sinus: normal facial exam Eyes General Eye: normal appearance of both eyes Neck full ROM Chest Chest: symmetrical chest wall rise Resp normal respiratory effort and normal air movement Auscultation: clear to auscultation bilaterally Cardio regular rate, regular rhythm, S1 normal heart sound, S2 normal heart sound, no murmurs, no rub, no gallops and no clicks GI normal to inspection, nondistended, normoactive bowel sounds and non-tender GI Narrative: Fundus firm 2 below U appearance of the vagina normal Bladder / Kidney Exam: no CVA tenderness Back/Spine normal ROM Extremity full ROM Extremity Narrative: +1 BLE edema, pitting. Skin no rashes or lesions noted Neuro oriented x3, CN's II-XII intact bilaterally and moves all extremities Sensorium / Orientation: awake, alert and oriented to person Motor Exam: clonus absent Deep Tendon Reflexes: Rt Patellar (L4): 2+ and Lt Patellar (L4): 2+ Assessment & Plan (1) Acute blood loss anemia: COMMENT: IV Iron, Repeat CBC (2) First degree perineal laceration: (3) Vaginal delivery: COMMENT: PPD#1 (4) Preeclampsia: QUALIFIERS: Trimester: third trimester Qualified Code(s): O14.93 - Unspecified pre-eclampsia, third trimester PLAN: 1)Routine PP care. 2) Bottle feeding 3) Hgb 7.5, Stable and asymptomatic. Will give IV iron. Repeat CBC at 1700 4) BP mild range, will continue to monitor, possible initiation of medication. Consulted and agrees with plan. 5) Discussed staying 72 hr post delivery due to preeclampsia 6) Pain controlled
[2021-02-11] MEDS: Pantoprazole Sodium 20 MG Tablet PO (10:24)
[2021-02-11] MEDS: 0.9% Saline Lock 10 ML Syringe IV (11:22)
[2021-02-11] MEDS: Ferrous Sulfate 325 MG Tablet PO ×2 (11:41→19:47)
[2021-02-11 13:32] VITALS: BP 134/80; PULSE 77; RESP 16; TEMP 36.5; O2SAT 96
[2021-02-11 17:35] VITALS: BP 142/74
[2021-02-11 17:44] LABS: Absolute Lymphocyte Count 1.57 X10^3/uL (0.83-4.51); Absolute Neutrophil Count 8.7 X10^3/uL (2.0-7.7); Basophil# 0.03 X10^3/uL; Basophil% 0.3 % (0-1); Eosinophil# 0.07 X10^3/uL; Eosinophils% 0.6 % (0-5); Hematocrit 27.6 % (37-47); Hemoglobin 8.4 g/dL (12.0-15.0); Lymphocyte # 1.57 X10^3/ul (0.83-4.51); Mean Corp Hgb Conc 30.4 g/dL (32-36); Mean Corpuscular Hgb 24.2 pg (27.0-32.0); Mean Corpuscular Volume 79.5 fL (81-99); Mean Platelet Vol. 11.4 fl (6.2-12.0); Monocyte# 0.66 X10^3/uL; Monocyte% 5.9 % (0-10); NRBC Flagged by Analyzer 0 % (0-5); Neutrophil # 8.74 X10^3/uL (2.7-7.7); POSITIVE MORPHOLOGY YES; Platelet Count 131 K/mm3 (150-450); RBC Distribution Width CV 21.2 % (11.6-14.6); RBC Distribution Width SD 43.5 fl (35.1-43.9); Red Blood Count 3.47 M/mm3 (4.2-5.4); White Blood Count 11.2 K/mm3 (4.4-11.0)
[2021-02-11 17:54] LABS: Differential Indicated SCAN CRITERIA MET
[2021-02-11 18:15] LABS: Differential Comment SCANNED
[2021-02-11 18:16] LABS: Anisocytosis 2+; Polychromasia 1+
[2021-02-11 18:17] LABS: Macrocytosis 1+; Microcytosis 1+
[2021-02-11 19:48] VITALS: BP 137/78; PULSE 79; RESP 16; TEMP 36.6
[2021-02-12 02:15] VITALS: BP 141/73; PULSE 79; RESP 16; TEMP 36.1
[2021-02-12] MEDS: 0.9% Saline Lock 10 ML Syringe IV (02:18)
[2021-02-12 07:45] VITALS: BP 147/84; PULSE 79; RESP 16; TEMP 36.5
--- NOTE | 2021-02-12 09:38 | PN.OBGYN_ITS ---
Subjective Subjective Patient seen at bedside, doing well. Patient reports good pain control mild lochia. Voiding without difficulty. Bottlefeeding. Patient reports part of her tooth fell off on the left side and she is having some facial pain and swelling and a little bit of a headache from that. Patient denies any visual changes. Objective Data Objective Data Vital Signs: Vital Signs Temp Pulse Resp BP Pulse Ox 97.7 F L 79 16 147/84 H 96 02/12/21 07:45 02/12/21 07:45 02/12/21 07:45 02/12/21 07:45 02/11/21 13:32 Oxygen Delivery Method Room Air Weight: 80.2 kg Body Mass Index (BMI) 33.4 Intake & Output: Intake and Output for Last 24 Hours 02/10/21 02/11/21 02/12/21 23:59 23:59 23:59 Intake Total 1907.17 / 1907.17 110 / 110 Output Total 450 / 450 Balance 1457.17 / 1457.17 110 / 110 Lab / Micro Data Result Diagrams: 02/11/21 17:20 02/09/21 17:20 Labs: Laboratory Results - last 24 hr 02/11/21 17:20: WBC 11.2 H, RBC 3.47 L, Hgb 8.4 L, Hct 27.6 L, MCV 79.5 L, MCH 24.2 L, MCHC 30.4 L, RDW Std Deviation 43.5, RDW Coeff of Melody 21.2 H, Plt Count 131 L, MPV 11.4, Immature Gran % (Auto) 1.200 H, Neut % (Auto) 78.0 H, Lymph % (Auto) 14.0 L, [place] % (Auto) 5.9, Eos % (Auto) 0.6, Baso % (Auto) 0.3, Absolute Neuts (auto) 8.7 H, Absolute Lymphs (auto) 1.57, Nucleated RBC % 0, Differential Comment SCANNED, Polychromasia 1+, Anisocytosis 2+, Microcytosis 1+, Macrocytosis 1+ Micro: Microbiology 02/09/21 Unknown Genital vaginal Group B Streptococcus Culture - Preliminary Streptococcus agalactiae (B) 02/09/21 19:10 Nasal Secretion SARS-CoV-2 Antigen (Rapid) - Final Physical Exam Const alert, oriented x3 and well nourished General Appearance: cooperative Exam Limitations: no limitations HEENT normocephalic Neck General: normal visual inspection GI soft to palpation and non-distended GI Narrative: Fundus firm Extremity normal to inspection and no calf tenderness Skin no rashes or lesions noted Neuro oriented x3 and CN's II-XII intact bilaterally Psych mental status grossly normal Assessment & Plan (1) Acute on chronic anemia: (2) Vaginal delivery: (3) Preeclampsia: QUALIFIERS: Trimester: third trimester Qualified Code(s): O14.93 - Unspecified pre-eclampsia, third trimester PLAN: PPD# 2 , Doing well Routine care pain mgmt ambulation BPs reviewed- Mildly elevated but no treatment indicated at this time when to call office or return to ER reviewed follow up 02/16/21 9:30 am in OFFICE for BP check and immediate PP exam follow up with dentist continue iron for anemia
--- NOTE | 2021-02-12 09:46 | PCM.DC ---
Discharge Instructions Diet Discharge Diet: No restrictions Activity May resume sexual activity in: 6-8 weeks Dressing / Incision Call your doctor if you observe: Fever of 101 or Higher, Inability to urinate, Using more than 1 pad per hour and Uncontrolled pain Follow Up Care Please Follow Up With: Soraya Good MD When: 1-2 weeks post and again at 6 weeks post . [phone] Test Results: Test results from this visit will be discussed in further detail at your follow-up appointment, if applicable. Discharge Plan Admission Admit Date/Time: 02/09/21 18:40 Attending Provider: Soraya Good Primary Care Provider: Care Physician,No Primary Instructions Patient Instructions: Kick Counts, OB Triage: Return to Hospital or Notify Physician if you Experience: Additional Instructions / Restrictions: keep appointment today at 4:30 Discharge Orders/Prescriptions Prescriptions: New acetaminophen 500 mg Tablet 1,000 mg PO Q6H PRN PRN (Reason: Pain 1-10 Or Fever) Qty: 0 RF: 0 ferrous sulfate [FeroSul] 325 mg (65 mg iron) Tablet 325 mg PO 1200,1700 Qty: 60 RF: 1 ibuprofen 600 mg Tablet 600 mg PO Q6H PRN PRN (Reason: Pain Score 1-10) Qty: 0 RF: 0 Continued Prenatabs FA 1 TABLET tablet 1 tab PO DAILY RF: 0 omeprazole 20 mg Capsule,Delayed Release(Dr/Ec) 20 mg PO DAILY RF: 0 Referrals / Follow Up: Care Physician,No Primary [Primary Care Provider] - Disposition Disposition (needs filled in before D/C Order can be placed): Home, Self Care
[2021-02-12] MEDS: Pantoprazole Sodium 20 MG Tablet PO (10:36)
== END 2021-02-12 11:15 | disposition home or self-care (01) | DRG 560 ==
LOC: WPOUT 18:47 → WP 19:09
PROVIDERS: Advanced Practice Midwife; Obstetrics & Gynecology; Admitting Provider Obstetrics & Gynecology; Referring Provider Obstetrics & Gynecology; Visit Provider Obstetrics & Gynecology
DX: O14.94 Unspecified pre-eclampsia, complicating childbirth (principal); Z3A.37 37 weeks gestation of pregnancy; Z37.0 Single live birth; Z87.891 Personal history of nicotine dependence; O99.013 Anemia complicating pregnancy, third trimester; O70.0 First degree perineal laceration during delivery; O99.12 Other diseases of the blood and blood-forming organs and certain disorders involving the immune mechanism complicating childbirth; D69.6 Thrombocytopenia, unspecified; K08.89 Other specified disorders of teeth and supporting structures; O75.89 Other specified complications of labor and delivery
CPT/HCPCS: 59025; 59050; 82565; 82570; 84156; 84450; 84460; 84550; 85025; 85027; 86850; 86900; 86901; 87077; 87081; 87186; 87426; 87653; 99218; J1756; J7120; A4216; G0378; J2405

== ENCOUNTER 2021-03-19 10:50 | Day surgery (SDC) | payer MEDICAID, SELFPAY ==
--- NOTE | 2021-03-18 12:49 | HP.PCM_ITS ---
History and Physical Date of Admission: 03/19/21 ? HPI: The patient is a 25 year old female presenting for pre-operative visit. She is scheduled for laparoscopic bilateral salpingctomy, for sterilization on 03/19/21. Procedure discussed along with risks, benefits and complications. Other alternatives discussed for management. Consent form signed? Yes. ? ? PAST MEDICAL HISTORY PAST MEDICAL HISTORY Diagnosis Date ? Anemia complicating , third trimester 01/22/2021 ? Depression, 07/16/2015 ? Dysmenorrhea ? ? History of pre-eclampsia ? ? Irregular menstrual cycle ? ? Irregular periods ? PMS (premenstrual syndrome) 05/09/2012 ? ? PAST SURGICAL HISTORY PAST SURGICAL HISTORY Procedure Laterality Date ? UNSPECIFIED ORAL SURGERY PROCEDURE, BY REPORT ? 12/2008 ? [facility] ? ? ? CURRENT MEDICATIONS Current Outpatient Medications Medication Sig Dispense Refill ? Norethindrone, Contraceptive, (ORTHO MICRONOR) 0.35 mg tablet Take 1 tablet by mouth once daily. 28 tablet 1 ? 0.9 % sodium chloride (0.9% NACL) Inject 10-20 mL intravenously as needed for up to 4 doses. NURSING USE ONLY: USED FOR IV ACCESS. AMBULATORY/OUTPATIENT: PLEASE REORDER UPON HOSPITAL DISCHARGE If no IVAD access, may place IV if needed for labs or possible treatment. Flush 10-20ml on IV start and as needed. Please discontinue IV on completion of treatment. 1 Syringe 3 ? iron sucrose 200 mg in NaCl 0.9% 100 mL Inject 200 mg intravenously as directed for 4 doses. Infuse over 20 minutes. May administer as frequently as three times per week. (Patient not taking: Reported on 02/16/2021 ) 10 mL 3 ? ferrous sulfate 325 mg (65 mg iron) tablet Take 1 tablet by mouth daily with breakfast. (Patient not taking: Reported on 02/16/2021 ) 30 tablet 1 ? cyclobenzaprine (FLEXERIL) 10 mg tablet Take 0.5-1 tablets by mouth twice daily as needed. for back pain (Patient not taking: Reported on 02/16/2021 ) 30 tablet 0 ? omeprazole (PRILOSEC) 20 mg capsule take 1 capsule by mouth once daily (Patient not taking: Reported on 02/16/2021 ) 30 capsule 5 ? [id number]-Rdhfeht-eznhb4-mpe ( PLUS DHA) 18 mg iron-800 mcg-290 mg cppt Take 1 tablet by mouth once daily. (Patient not taking: Reported on 02/16/2021 ) 30 Each 12 ? Current Facility-Administered Medications Medication Dose Route Frequency Provider Last Rate Last Admin ? NaCl 0.9% iv infusion 500 mL/hr INTRAVENOUS PRN Priscilla Cameron MD ? diphenhydrAMINE 50 mg injection (BENADRYL) 50 mg INTRAVENOUS PRN Priscilla Cameron MD ? hydrocortisone sodium succinate (PF) 100 mg injection (Solu-CORTEF) 100 mg INTRAVENOUS PRN Priscilla Cameron MD ? EPINEPHrine 1 mg/mL (1 mL) 0.3 mg injection 0.3 mg INTRAMUSCULAR PRN Priscilla Cameron MD ? ? ALLERGIES: Z-Jordan [Azithromycin] ? PERSONAL HISTORY: SOCIAL HISTORY Social History ? Tobacco Use ? Smoking status: Former Smoker ? ? Years: 5.00 ? ? Types: Cigarettes ? ? Quit date: 05/12/2018 ? ? Years since quittin.8 ? Smokeless tobacco: Never Used Vaping Use ? Vaping Use: Never used Substance Use Topics ? Alcohol use: Not Currently ? Drug use: No ? FAMILY HISTORY: FAMILY HISTORY FAMILY HISTORY Problem Relation Age of Onset ? Cancer Mother 59 ? lung ? Hypertension Father ? ? No Known Problems Brother ? ? Cancer Maternal Grandmother ? ? Stroke Paternal Grandfather ? ? age 78 ? Diabetes Paternal Grandfather ? ? other (killed in motorcylce accident) Brother ? ? No Known Problems Sister ? ? Cancer Maternal Uncle ? ? from leukemia ? No Known Problems Daughter ? ? No Known Problems Son ? ? ? REVIEW OF SYMPTOMS: GENERAL: denies fevers or chills ENDOCRINOLOGY: has not been on steroids Cardiology : denies palpitations or chest pain Respiratory: denies SOB or cough Hematology: denies history of prolonged bleeding or easy bruising or VTE Allergy: Denies history of personal or family history of allergy to anesthesia ? PHYSICAL EXAMINATION: ? VITALS: Last menstrual period 05/25/2020, unknown if currently . ? GENERAL: The patient is well nourished, well hydrated in no acute distress. , The patient is oriented to time, place, and person. NECK: Supple. No lynphadenopathy, normal thyroid, no thyromegaly. LUNGS: Clear to auscultation bilaterally. no wheezes, rhonchi or rales HEART: Regular rate and rhythm, Normal heart sounds and No murmurs or gallops ? IMPRESSION: sterilization request ? PLAN: The risks/benefits/alternatives and personal involved for the planned laparoscopic bilateral salpingectomy were reviewed with the patient. Her questions were answered to her satisfaction and she desires to proceed. Consent was signed. I reviewed with her postop instructions and expectations. ? ? I have reviewed and updated past medical and surgical history, medications and allergies Assessment & Plan Assessment/Plan (1) Sterilization:
[2021-03-19] VITALS (8 sets, daily range): BP systolic 108–129; BP diastolic 64–82; PULSE 55–92; RESP 12–22; TEMP 35.8–36.7; O2SAT 98–100; BMI 28.7
[2021-03-19] MEDS: Acetaminophen 500 MG Tablet 1000 MG PO (11:42)
[2021-03-19] MEDS: Celecoxib 200 MG Capsule PO (11:42)
[2021-03-19] MEDS: Lactated Ringers 1,000 ML 15 ML IV (11:45)
[2021-03-19 11:55] LABS: Hematocrit 34.8 % (37-47); Hemoglobin 10.8 g/dL (12.0-15.0); Mean Corpuscular Hgb 24.3 pg (27.0-32.0); Mean Corpuscular Volume 78.2 fL (81-99); Mean Platelet Vol. 9.9 fl (6.2-12.0); POSITIVE MORPHOLOGY YES; Platelet Count 194 K/mm3 (150-450); RBC Distribution Width CV 20.3 % (11.6-14.6); RBC Distribution Width SD 57.1 fl (35.1-43.9); Red Blood Count 4.45 M/mm3 (4.2-5.4); White Blood Count 5.9 K/mm3 (4.4-11.0)
[2021-03-19 11:56] LABS: Scan Indicated on CBC? Y/N YES- FLAGS NOTED
[2021-03-19 11:57] LABS: Internal QC Validated? YES +Cl - CLEAR BKGD; Pregnancy, Urine Negative Negative
[2021-03-19 12:02] LABS: International Normalized Ratio 1.1; Prothrombin Time (Protime)PT. 13.7 SECONDS (11.7-14.9)
[2021-03-19 12:03] LABS: Partial Thromboplast Time 32.9 Seconds (24.1-36.2)
[2021-03-19 12:11] LABS: AST(SGOT) 25 U/L (15-37); Alanine Aminotransfer ALT/SGPT 41 U/L (13-56); Albumin, Serum 3.6 g/dL (3.2-5.0); Alkaline Phosphatase 84 U/L (45-117); Bilirubin, Direct 0.11 mg/dL (0.00-0.30); Globulin 3.7 g/dL (2.2-4.2); Protein, Total 7.3 g/dL (6.4-8.2)
--- NOTE | 2021-03-19 12:55 | FALS_PTH ---
PATIENT: MARY DAVIS [place] [facility] [place][id number] AGE/SX: 25/F ROOM: RE03/19/[address]: Dr. Priscilla Cameron MD : 1995 BED: DIS: 03/19/2021 SPEC #: [id number] RECD: 03/19/21 13:46 STATUS: KAMILA REMatteo #: [id number] TISH: 03/19/21 12:[address]: Priscilla Cameron DEPT: SURGICAL PATHOLOGY RECD BY: Angelica Aaron ENTERED: 03/20/21 10:50 SP TYPE: FALL TUBES OTHR DR: No Primary Care Phys Tissues: Fallopian tube Procedures: Surgery Specimen Level II HEADER OPERATION: Laparoscopic salpingectomy PRE-OP DIAGNOSIS: Sterilization TISSUE SUBMITTED: Bilateral fallopian tubes MICROSCOPIC DIAGNOSIS Bilateral fallopian tubes, salpingectomy: One fallopian tube, no pathologic diagnosis. Second fallopian tube with mild chronic inflammation. SJ:gregg 03/23/2021 COMMENT Case has been reviewed in consultation with Dr. Camacho who concurs with the above diagnosis. IDC:AM MICROSCOPIC DESCRIPTION Slides are reviewed. GROSS DESCRIPTION Received in fixative is one container labeled with the patient's name and designated bilateral fallopian tubes. The specimen consists of two fallopian tubes with an average length of 7 cm and has an average diameter of 0.7 cm. Both fallopian tubes have normal fimbriated ends. No mass lesions are identified. Sr Vice President sections are submitted in two cassettes as follows: 1 - one fallopian tube, 2 - the other fallopian tube. / AM:gregg 03/20/21 TC:3 CPT: 90206 , 82421
--- NOTE | 2021-03-19 13:01 | PCM.DC ---
Discharge Instructions Diet Discharge Diet: No restrictions Activity May resume sexual activity in: 1 week Dressing / Incision Call your doctor if your incision/area has: Sudden Increased Bleeding and Foul Smelling Discharge Call your doctor if you observe: Fever of 101 or Higher Cleanse incision/area with: Soap & Water (Your incisions have skin glue and it can get wet. Leave on until it falls off) Follow Up Care Please Follow Up With: Priscilla Cameron MD When: In my office or virtual visit in 1-2 weeks or as needed Test Results: Test results from this visit will be discussed in further detail at your follow-up appointment, if applicable. Discharge Plan Admission Primary Reason for Your Visit: Tubal sterilization Attending Provider: Priscilla Cameron Primary Care Provider: Care Physician,Cass Primary Instructions Patient Instructions: Discharge Instruction for ... Discharge Orders/Prescriptions Prescriptions: New naproxen 375 mg tablet 375 mg PO BID 30 Days Qty: 60 RF: 1 oxycodone 5 mg capsule 5 mg PO BID PRN (Reason: pain) 3 Days Qty: 5 RF: 0 Referrals / Follow Up: Care Physician,No Primary [Primary Care Provider] - Disposition Disposition (needs filled in before D/C Order can be placed): Home, Self Care
--- NOTE | 2021-03-19 13:05 | PCM.OPRPT ---
Problems Associated Problem List Diagnoses (1) Sterilization: Report of Operation Date of Procedure: 03/19/21 Pre-Operative Diagnosis: sterilization request Post-Operative Diagnosis: same Surgery/Procedure Performed:: laparoscopic bilateral salpingectopmy Surgeon: Priscilla Cameron card checker: Asuncion Soto Type of Anesthesia: General Anesthesiologist: Rhys Tesfaye Special Medications: none Specimen's removed: bialteral fallopian tubes Drains: none Estimated Blood Loss (mL): 5 Fluids Replaced: 600 Description of Procedure: The patient was taken to the operating room where she was prepped and draped in the dorsolithotomy position. A weighted speculum was placed in the vagina and the anterior lip of the cervix was grasped with a tenaculum. The Karen uterine manipulator was placed and the remainder of the instruments were removed from the vagina. Attention was turned to the abdomen. All port sites were infiltrated with 0.5% Marcaine before skin incisions were made. A 5 mm intraumbilical incision was made. The anterior abdominal wall was tented up with 2 towel clamps while a 5 mm blade less trocar and sleeve were directly inserted. Intraperitoneal placement was confirmed with the laparoscope. The pneumoperitoneum was created and the underlying abdominal contents were intact. The patient was placed in Trendelenburg. Right and left lower quadrant ports were placed under direct visualization lateral to the inferior epigastric vessels. The bowel was swept away and the above findings were noted. The LigaSure device was used to clamp seal and transect the antimesenteric portions of the right tube to the cornual insertion of the uterus. The tube was amputated from the uterus and the pedicles were all confirmed to be hemostatic. The same procedure was performed on the contralateral side. The specimens were brought out through a 5 mm port. The pedicles were again examined and found to be hemostatic. The lateral ports were removed under direct visualization and no active bleeding was noted. The pneumoperitoneum was released. The skin incisions were closed with Monocryl suture in a subcuticular fashion and skin glue by the PENOLOGY TEACHER. The vaginal instruments were removed and the vaginal sweep was completed by me. The procedure was performed by me with assistance other than as dictated above. All sponge and needle counts were correct and the patient was taken to the recovery room in stable condition. The PENOLOGY TEACHER provided camera guidance and tissue manipulation. Grafts/Implants Used: none Procedure Start Time: 13:08 Procedure Stop Time: 13:23 Complications none Admit VTE Documentation VTE Present on Admission: No VTE Mechan Device Prophylaxis: SCD's VTE Pharm Prophylaxis ordered?: No Reason prophylaxis not ordered:: Procedure Not Indicated
[2021-03-19] MEDS: Bupivacaine Mpf 0.5% 30 ML VIAL (13:08)
--- NOTE | 2021-03-19 13:47 | SUR.PHASEI ---
PATIENT CAME OVER ITCHING HER EYES AND FACE AND C/O ITCHING IN HER VAGINAL AREA. POSSIBLY D/T FENTANYL GIVEN IN OR. BENEDRYL 25 MG AND REGLAN 10 MG IV BY DES RAMSAY TO HELP WITH THE ITCHING. WARM WASH CLOTH USED TO WASH HER FACE TO HELP WITH ITCHING. PATIENT RESTING QUIETLY CURRENTLY.
--- NOTE | 2021-03-19 14:23 | SUR.PHASEI ---
PATIENT STILL SLEEPING SOUNDLY FROM BENEDRYL/REGLAN.
== END 2021-03-19 16:26 | disposition home or self-care (01) ==
LOC: SDC 10:51 → AC 10:53
PROVIDERS: Anesthesiology; Referring Provider Obstetrics & Gynecology; Visit Provider Obstetrics & Gynecology
PROC: (CPT 58661; principal; 2021-03-19 12:40)
DX: Z30.2 Encounter for sterilization (principal); Z79.899 Other long term (current) drug therapy; Z80.1 Family history of malignant neoplasm of trachea, bronchus and lung; Z82.49 Family history of ischemic heart disease and other diseases of the circulatory system; Z83.3 Family history of diabetes mellitus; Z87.891 Personal history of nicotine dependence; Z87.59 Personal history of other complications of pregnancy, childbirth and the puerperium; Z88.1 Allergy status to other antibiotic agents
CPT/HCPCS: 58670; 80076; 81025; 85027; 85610; 85730; 87426; 88302; J7120; C1760; J2405